=== PATIENT | female | born 1970 | race Caucasian/White ===

== ENCOUNTER 2018-08-07 09:52 | Day surgery (SDC) | payer OTHER ==
[2018-08-07] MEDS: BUPIVACAINE 0.25% (MPF) 30 ML INJ INJ (08:10)
[~2018-08-07 09:52] MED LIST: CEFAZOLIN 2 GM/50 ML (PMX) 50 ML IVPB; SOD CHLORIDE 0.9% 1,000 ML IV
[2018-08-07 11:11] LABS: ADD MAN DIFF? NO
[2018-08-07] MEDS ORDERED: ROCURONIUM 50 MG INJ (11:18)
[2018-08-07] MEDS ORDERED: LIDOCAINE 2% (SDV) 5 ML INJ (11:18)
[2018-08-07] MEDS ORDERED: DEXAMETHASONE 4 MG/ML 1 ML INJ (11:18)
[2018-08-07] MEDS ORDERED: MIDAZOLAM 1 MG/ML 2 ML INJ (11:18)
[2018-08-07] MEDS ORDERED: NEOSTIGMINE 3 MG/3 ML SYRINGE (11:18)
[2018-08-07] MEDS ORDERED: GLYCOPYRROLATE 0.4 MG INJ (11:18)
[2018-08-07] MEDS ORDERED: PROPOFOL 20 ML (11:18)
[2018-08-07] MEDS ORDERED: FENTAnyl 50 MCG/ML VIAL (11:18)
[2018-08-07] MEDS ORDERED: ONDANSETRON 4 MG INJ (11:19)
[2018-08-07] MEDS ORDERED: SUCCINYLCHOLINE CHLORIDE 100 MG/5 ML SYG IV (11:20)
[2018-08-07 11:23] LABS: WHITE BLOOD COUNT 4.3 10^3/ul (4.8-10.8)
[2018-08-07 11:23] LABS: BASOPHIL # 0.1 10^3/ul (0.0-0.1); BASOPHILS % 1.2 % (0.0-2.0); EOSINOPHILS # 0.1 10^3/ul (0.0-0.5); EOSINOPHILS % 2.1 % (0.0-7.0); HEMATOCRIT 36.8 % (37.0-47.0); HEMOGLOBIN 12.3 g/dl (12.0-16.0); MEAN CORPUSCULAR HEMOGLOBIN 30.4 pg (29.0-33.0); MEAN CORPUSCULAR HGB CONC 33.4 g/dl (32.0-37.0); MEAN CORPUSCULAR VOLUME 91.1 fl (82.0-101.0); MEAN PLATELET VOLUME 10.2 fl (7.4-10.4); MONOCYTE # 0.3 10^3/ul (0.3-0.9); MONOCYTES % 6.5 % (0.0-11.0); NEUTROPHIL # 2.9 10^3/ul (1.6-7.5); PLATELET COUNT 282 10^3/UL (140-415); RED BLOOD COUNT 4.04 10^6/ul (4.20-5.40); RED CELL DISTRIBUTION WIDTH 12.5 % (11.5-14.5)
[2018-08-07 11:25] LABS: HOLD TRANSMISSIONS 1
[2018-08-07 11:32] LABS: ALANINE AMINOTRANSFERASE 14 IU/L (13-69); ALBUMIN 4.2 g/dl (3.3-4.9); ALKALINE PHOSPHATASE 33 IU/L (42-121); ANION GAP 11 (8-16); ASPARTATE AMINO TRANSFERASE 18 IU/L (15-46); BILIRUBIN,INDIRECT 0.5 mg/dl (0-1.1); BILIRUBIN,TOTAL 0.5 mg/dl (0.2-1.3); BLOOD UREA NITROGEN 18 mg/dl (7-20); CALCIUM 8.9 mg/dl (8.4-10.2); CARBON DIOXIDE 25 mmol/L (21-31); CHLORIDE 108 mmol/L (97-110); CREATININE 0.65 mg/dl (0.44-1.00); GLUCOSE 86 mg/dl (70-220); SODIUM 140 mmol/L (135-144); TOTAL PROTEIN 7.2 g/dl (6.1-8.1)
[2018-08-07 11:34] LABS: INR 0.99; PROTIME 13.2 Sec (11.9-14.9)
[2018-08-07 11:35] LABS: PARTIAL THROMBOPLASTIN TIME 33.4 Sec (23.0-35.0)
[2018-08-07] MEDS ORDERED: hydrALAzine 20 MG INJ (11:48)
[2018-08-07] MEDS ORDERED: LABETALOL HCL 20MG INJ (11:52)
[2018-08-07] MEDS ORDERED: BUPIVACAINE 0.25% (MPF) 30 ML INJ (12:08)
[2018-08-07] MEDS ORDERED: morphine (1 MG/ML) 10ML SYRINGE IV ×3 (12:30)
[2018-08-07] MEDS ORDERED: hydrALAzine 20 MG INJ IV (12:30)
[2018-08-07] MEDS ORDERED: MEPERIDINE 25 MG INJ IV (12:30)
[2018-08-07] MEDS ORDERED: ONDANSETRON 4 MG INJ IV (12:30)
[2018-08-07] MEDS ORDERED: FENTAnyl 50 MCG/ML VIAL IV (12:30)
[2018-08-07] MEDS ORDERED: OXYCODONE/ACETAMINOPHEN (5/325) TAB PO ×2 (12:30)
[2018-08-07] MEDS ORDERED: HYDROmorphONE 1 MG/5 ML IV SYRINGE IV ×2 (12:30)
[2018-08-07] MEDS ORDERED: MIDAZOLAM 1 MG/ML 2 ML INJ IV (12:30)
[2018-08-07] MEDS ORDERED: ATROPINE 1 MG/10 ML SYRINGE IV (12:30)
[2018-08-07] MEDS ORDERED: LABETALOL HCL 20MG INJ IV (12:30)
[2018-08-07] MEDS ORDERED: EPHEDrine SULFATE 50 MG/5 ML SYG IV (12:30)
[2018-08-07] MEDS ORDERED: DIPHENHYDRAMINE 50 MG INJ IV (12:30)
[2018-08-07] MEDS: HYDROmorphONE 1 MG/5 ML IV SYRINGE IV (15:11)
[2018-08-07] MEDS: FENTAnyl 50 MCG/ML VIAL IV (15:12)
[2018-08-07] MEDS: HYDROCODONE/APAP (5/325) TAB PO (15:31)
== END 2018-08-07 16:00 | disposition home or self-care (01) ==
LOC: SDS 09:52
DX: N60.12 Diffuse cystic mastopathy of left breast (principal)
CPT/HCPCS: 19260; 80053; 84703; 85025; 85610; 85730; 88307